=== PATIENT | male | born 1935 | race Caucasian/White ===

== ENCOUNTER 2016-08-08 13:45 | Emergency (ER) | payer MEDICARE ==
[~2016-08-08 13:45] MED LIST: ADVAIR115P INH; ADVAIR250 INH; ADVAIR45P INH; AMARYL2 PO; ASAB PO; C2 PO; COMBIVENT INH; COMBIVENT RESPIM4 GM INH; CORDARONE PO; COZ25 PO; DIOVAN PO; FISH OIL1200 MG PO; HALF81 PO; HEMOCYTE PO; HEMOCYTE324 MG PO; L20 PO; LAN125 PO; LIPITOR40 PO; NAMENDA10 MG PO; NEUR300 PO; NEUR600 PO; PRADAXA150 MG PO; PRILOSEC40 MG PO; PRIN5 PO; PROAMAT5 PO; RED YEAS1 PO; SAW PALMETTO PO; TOPXL25 PO; ZOL50 PO
[2016-08-08 14:05] LABS: BASOPHILS 0.2 %; BASOPHILS ABSOLUTE 0.02 10/3/uL (0.0-0.16); EOSINOPHILS 0.1 %; EOSINOPHILS ABSOLUTE 0.01 10/3/uL (0.0-0.53); ER CBC TAT 0 Hrs 05 Mins; HEMATOCRIT 31.2 % (40.0-51.0); HEMOGLOBIN 10.5 g/dL (13.6-17.8); IMMATURE GRANULOCYTES 0.2 %; IMMATURE GRANULOCYTES ABSOLUTE 0.02 10/3/uL (0.0-0.11); LYMPHOCYTES 16.5 %; LYMPHOCYTES ABSOLUTE 1.72 10/3/uL (0.67-4.30); MANUAL DIFF NO %; MEAN CORPUS HGB CONC 33.7 g/dL (32.0-36.0); MEAN CORPUSCULAR HEMOGLOB 31.9 pg (26.0-34.0); MEAN CORPUSCULAR VOLUME 94.8 fL (80-100); MEAN PLATELET VOLUME 9.3 fL (9.2-13.0); MONOCYTES 12.2 %; MONOCYTES ABSOLUTE 1.28 10/3/uL (0.21-1.20); NEUTROPHILS 70.8 %; PLATELET COUNT 184 10/3/uL (150-400); RBC DISTRIBUTION WIDTH 13.5 % (12.0-16.0); RED CELL COUNT 3.29 10/6/uL (4.7-6.1); WHITE BLOOD CELLS 10.5 10/3/uL (4.5-10.5)
[2016-08-08 14:19] LABS: ALKALINE PHOSPHATASE 74 U/L (45-117); CALCIUM, SERUM 8.9 MG/DL (8.5-10.4); CHLORIDE, SERUM 110 MMOL/L (96-112); CO2 (CARBON DIOXIDE) 24 MMOL/L (24-34); GFR AFRICAN AMERICAN 55 ML/MIN (>=60); GFR NON AFRICAN AMERICAN 47 ML/MIN (>=60); GLOBULIN 3.2 G/DL (2.5-4.1); GLUCOSE, SERUM 91 MG/DL (60-99); POTASSIUM, SERUM 3.8 MMOL/L (3.5-5.3); SGOT(AST) 11 U/L (5-40); SGPT(ALT) 24 U/L (5-65); SODIUM, SERUM 144 MMOL/L (135-148); TOTAL BILIRUBIN 0.6 MG/DL (0-1.2); TOTAL PROTEIN 6.4 G/DL (6.0-8.5)
[2016-08-08 14:20] LABS: ALBUMIN 3.2 G/DL (3.5-5.0); BUN (BLOOD UREA NITROGEN) 18 MG/DL (6-23)
[2016-08-08 17:16] LABS: ASCORBIC ACID (UR NOT ORDER) NEG (NEG); BILIRUBIN, URINE NEGATIVE (NEG); ER URINALYSIS TAT 0 Hrs 07 Mins; KETONE, URINE NEGATIVE (NEG); LEUKOCYTE ESTERASE(NOT OR NEG (NEG); NITRITE (URINE) NEG (NEG); WBC (NOT ORDERED) (RFLEX) 1 (0-5)
[2016-08-08] MEDS ORDERED: LIPITOR40 PO (18:42)
[2016-08-08] MEDS ORDERED: ASAB PO (18:42)
[2016-08-08] MEDS ORDERED: LEVOTHYROXIN25 MCG PO (18:43)
[2016-08-08] MEDS ORDERED: NEUR300 PO (18:43)
[2016-08-08] MEDS ORDERED: MELA3 PO (18:43)
[2016-08-08] MEDS ORDERED: VITAMIN D1000 UNI1 PO (18:43)
[2016-08-08] MEDS ORDERED: MEGACEUDL PO (18:44)
[2016-08-08] MEDS ORDERED: PROTONIX PO (18:45)
[2016-08-08] MEDS ORDERED: FLOMAX4 PO (18:46)
[2016-08-08] MEDS ORDERED: SEROQUEL25 PO (18:46)
[2016-08-08] MEDS ORDERED: PULRESP.5 INH (18:47)
[2016-08-08] MEDS ORDERED: ACET500CAP PO (18:47)
[2016-08-08] MEDS ORDERED: NAMENDA10 MG PO (18:48)
[2016-08-08] MEDS ORDERED: DUONEB INH (18:48)
[2016-08-08] MEDS ORDERED: ANTIFUNGAL CREAM TOP (18:49)
[2016-08-08] MEDS ORDERED: DSS PO (18:49)
[2016-08-08] MEDS ORDERED: PROAMATINE10 MG PO (18:49)
[2016-08-08] MEDS ORDERED: FLORINEF0.1 MG PO (18:50)
[2016-08-08] MEDS ORDERED: HUMALOG SC (18:51)
[2016-08-08] MEDS ORDERED: ZOFRAN4 PO (18:54)
[2016-08-09] MEDS ORDERED: PROAMATINE10 MG PO (07:39)
[2016-08-09] MEDS ORDERED: FLORINEF0.1 MG PO (07:40)
[2016-08-09] MEDS ORDERED: DSS PO (07:43)
[2016-08-09] MEDS ORDERED: PROTONIX PO (14:34)
== END 2016-08-08 20:44 | disposition home or self-care (01) ==
LOC: ER 13:45
PROVIDERS: Nurse Practitioner Family
DX: K59.00 Constipation, unspecified (principal); J44.9 Chronic obstructive pulmonary disease, unspecified; E11.9 Type 2 diabetes mellitus without complications; F03.90 Unspecified dementia, unspecified severity, without behavioral disturbance, psychotic disturbance, mood disturbance, and anxiety; Z79.82 Long term (current) use of aspirin; Z79.899 Other long term (current) drug therapy
CPT/HCPCS: 71010; 74000; 74176; 80053; 81001; 83605; 83690; 85025; 94640; 99284; A9270-GY